=== PATIENT | female | born 1945 ===

== ENCOUNTER 2019-06-21 12:24 | Outpatient (CLI) | payer OTHER ==
[~2019-06-21] VITALS: Ht 154.9 cm; Wt 90.7 kg
[2019-06-21] MEDS ORDERED: FLONASE16 GM NASAL (13:59)
== END 2019-06-21 12:40 | disposition home or self-care (01) ==
LOC: OFIC 805 12:24
DX: J31.0 Chronic rhinitis (principal); H61.23 Impacted cerumen, bilateral; H90.3 Sensorineural hearing loss, bilateral

== ENCOUNTER 2021-07-18 15:10 | Outpatient (CLI) | payer OTHER ==
[~2021-07-18 15:10] MED LIST: FLONASE16 GM NASAL
== END 2021-07-18 15:12 | disposition home or self-care (01) ==
LOC: PPH VACUNA 15:10
PROVIDERS: ATTEND Emergency Medicine Pediatric Emergency Medicine
DX: Z23 Encounter for immunization (principal)